=== PATIENT | male | born 1950 | race Caucasian/White ===

== ENCOUNTER 2018-12-04 14:02 | Observation (INO) | payer MEDICARE ==
[~2018-12-04 14:02] MED LIST: CLINDAMYCIN 600 MG/50 ML D5W IVPB IVPB; ETOMIDATE 20 MG INJ
[2018-12-04] MEDS ORDERED: MIDAZOLAM 1 MG/ML 2 ML INJ ×2 (15:27→15:57)
[2018-12-04 15:48] LABS: INR 0.99; PROTIME 13.2 Sec (11.9-14.9)
[2018-12-04] MEDS ORDERED: FENTAnyl 50 MCG/ML VIAL (15:57)
[2018-12-04] MEDS ORDERED: METOCLOPRAMIDE 10 MG INJ IV (16:00)
[2018-12-04] MEDS ORDERED: MEPERIDINE 25 MG INJ IV (16:00)
[2018-12-04] MEDS ORDERED: HYDROmorphONE 1 MG/5 ML IV SYRINGE IV ×2 (16:00→18:17)
[2018-12-04] MEDS ORDERED: ONDANSETRON 4 MG INJ IV ×2 (16:00→18:30)
[2018-12-04] MEDS ORDERED: FENTAnyl 50 MCG/ML VIAL IV (16:00)
[2018-12-04] MEDS ORDERED: KETOROLAC 30 MG INJ IV (16:00)
[2018-12-04] MEDS ORDERED: GENTAMICIN 80 MG INJ (17:03)
[2018-12-04] MEDS ORDERED: CEFAZOLIN 1 GM INJ (17:13)
[2018-12-04] MEDS ORDERED: PROPOFOL 20 ML (17:13)
[2018-12-04] MEDS ORDERED: ONDANSETRON 4 MG INJ (17:13)
[2018-12-04] MEDS ORDERED: LIDOCAINE 2% (SDV) 5 ML INJ (17:13)
[2018-12-04] MEDS ORDERED: ROCURONIUM 50 MG INJ (17:13)
[2018-12-04] MEDS: HYDROmorphONE 1 MG/5 ML IV SYRINGE IV (18:21)
[2018-12-04] MEDS ORDERED: DOCUSATE SODIUM 100 MG CAP PO (18:30)
[2018-12-04] MEDS ORDERED: BISACODYL 10 MG SUPP PR (18:30)
[2018-12-04] MEDS ORDERED: NACL 0.9% 3 ML SYG IV (18:30)
[2018-12-04] MEDS ORDERED: BISACODYL (EC) 5 MG TAB PO (18:30)
[2018-12-04] MEDS ORDERED: ALBUTEROL/IPRATROPIUM (NEB) 3 ML AMP HHN (18:30)
[2018-12-04] MEDS ORDERED: MAGNESIUM HYDROXIDE 30ML CUP PO (18:30)
[2018-12-04] MEDS ORDERED: ZOLPIDEM 5 MG TAB PO (18:30)
[2018-12-04] MEDS ORDERED: GLUCOSE GEL 15 GRAM TUBE BUCCAL (19:00)
[2018-12-04] MEDS ORDERED: GLUCOSE GEL 15 GRAM TUBE PO ×2 (19:00)
[2018-12-04] MEDS ORDERED: DEXTROSE 50% 50 ML SYRINGE IV ×2 (19:00)
[2018-12-04] MEDS ORDERED: GLUCAGON 1 MG INJ IM (19:00)
[2018-12-04] MEDS: DIPHENHYDRAMINE 50 MG INJ IV (19:40)
[2018-12-04] MEDS: SOD CHLORIDE 0.9% 1,000 ML IV (19:44)
[2018-12-04] MEDS: morphine 2 MG INJ IV (19:50)
[2018-12-04] MEDS: INSULIN ASPART [NOVOLOG] 3 ML PEN SC (21:00)
[2018-12-04] MEDS: FAMOTIDINE 20 MG INJ IV (21:01)
[2018-12-04] MEDS: CEFAZOLIN 1 GM/50 ML (PMX) 50 ML IVPB (21:10)
[2018-12-04] MEDS: HYDROCODONE/APAP (5/325) TAB PO (21:18)
[2018-12-05] MEDS: ACCU-CHEK XX (02:00)
[2018-12-05 05:19] LABS: ADD MAN DIFF? NO
[2018-12-05] MEDS: CEFAZOLIN 1 GM/50 ML (PMX) 50 ML IVPB (05:25)
[2018-12-05 05:27] LABS: ABNORMAL IP MESSAGE 1; BASOPHILS % 0.3 % (0.0-2.0); HEMATOCRIT 44.8 % (42.0-52.0); HEMOGLOBIN 14.3 g/dl (14.0-18.0); LYMPHOCYTES # 0.5 10^3/ul (0.8-2.9); LYMPHOCYTES % 3.1 % (15.0-51.0); MEAN CORPUSCULAR HEMOGLOBIN 27.8 pg (29.0-33.0); MEAN CORPUSCULAR HGB CONC 31.9 g/dl (32.0-37.0); MEAN PLATELET VOLUME 10.2 fl (7.4-10.4); MONOCYTES % 6.8 % (0.0-11.0); NEUTROPHIL # 13.2 10^3/ul (1.6-7.5); PLATELET COUNT 244 10^3/UL (140-415); POSITIVE DIFF @See below; RED BLOOD COUNT 5.15 10^6/ul (4.70-6.10); RED CELL DISTRIBUTION WIDTH 14.6 % (11.5-14.5)
[2018-12-05 05:27] LABS: WHITE BLOOD COUNT 14.8 10^3/ul (4.8-10.8)
[2018-12-05 05:40] LABS: HEMOGLOBIN A1C 9.7 % (0-5.9)
[2018-12-05 06:04] LABS: ALANINE AMINOTRANSFERASE 258 IU/L (13-69); ALBUMIN 3.7 g/dl (3.3-4.9); ALBUMIN/GLOBULIN RATIO 0.94; ALKALINE PHOSPHATASE 172 IU/L (42-121); ANION GAP 9 (5-13); ASPARTATE AMINO TRANSFERASE 357 IU/L (15-46); BILIRUBIN,INDIRECT 1.3 mg/dl (0-1.1); BILIRUBIN,TOTAL 2.8 mg/dl (0.2-1.3); BLOOD UREA NITROGEN 30 mg/dl (7-20); CALCIUM 8.9 mg/dl (8.4-10.2); CARBON DIOXIDE 28 mmol/L (21-31); CHLORIDE 101 mmol/L (97-110); CREATININE 1.65 mg/dl (0.61-1.24); Estimated GFR 42 mL/min (>60); GLUCOSE 248 mg/dl (70-220); MAGNESIUM 1.9 mg/dl (1.7-2.5); POTASSIUM 4.4 mmol/L (3.5-5.1); SODIUM 138 mmol/L (135-144); TOTAL PROTEIN 7.6 g/dl (6.1-8.1)
[2018-12-05] MEDS: ACETAMINOPHEN 325 MG TAB PO (06:34)
[2018-12-05] MEDS: FAMOTIDINE 20 MG INJ IV ×2 (08:17→20:44)
[2018-12-05] MEDS: INSULIN ASPART [NOVOLOG] 3 ML PEN SC ×4 (08:19→20:50)
[2018-12-05] MEDS: HYDROCODONE/APAP (5/325) TAB PO (09:58)
[2018-12-05] MEDS: PIPER-TAZO 2.25 GM (PMX) 50 ML IVPB ×4 (10:38→23:55)
[2018-12-05] MEDS: SOD CHLORIDE 0.9% 1,000 ML IV (11:19)
[2018-12-05] MEDS: NAPROXEN 250 MG TAB PO (13:05)
[2018-12-05] MEDS: INSULIN GLARGINE [LANTus] (100 UNITS/ML) SYG SC (20:48)
[2018-12-05] MEDS: traMADol 50 MG TAB PO (22:45)
[2018-12-06] MEDS: NAPROXEN 250 MG TAB PO (01:14)
[2018-12-06] MEDS: ACCU-CHEK XX (02:10)
[2018-12-06 05:28] LABS: ADD MAN DIFF? NO
[2018-12-06 05:33] LABS: BASOPHILS % 0.3 % (0.0-2.0); EOSINOPHILS # 0.1 10^3/ul (0.0-0.5); EOSINOPHILS % 0.7 % (0.0-7.0); HEMATOCRIT 41.2 % (42.0-52.0); LYMPHOCYTES # 0.6 10^3/ul (0.8-2.9); LYMPHOCYTES % 9.1 % (15.0-51.0); MEAN CORPUSCULAR HEMOGLOBIN 27.4 pg (29.0-33.0); MEAN CORPUSCULAR HGB CONC 31.6 g/dl (32.0-37.0); MEAN CORPUSCULAR VOLUME 86.9 fl (82.0-101.0); MEAN PLATELET VOLUME 10.1 fl (7.4-10.4); MONOCYTE # 0.8 10^3/ul (0.3-0.9); MONOCYTES % 11.5 % (0.0-11.0); NEUTROPHIL # 5.3 10^3/ul (1.6-7.5); PLATELET COUNT 197 10^3/UL (140-415); RED BLOOD COUNT 4.74 10^6/ul (4.70-6.10); RED CELL DISTRIBUTION WIDTH 14.6 % (11.5-14.5)
[2018-12-06 05:33] LABS: WHITE BLOOD COUNT 6.8 10^3/ul (4.8-10.8)
[2018-12-06] MEDS: PIPER-TAZO 2.25 GM (PMX) 50 ML IVPB ×2 (05:37→13:02)
[2018-12-06] MEDS: SOD CHLORIDE 0.9% 1,000 ML IV (05:37)
[2018-12-06 06:11] LABS: ALANINE AMINOTRANSFERASE 122 IU/L (13-69); ALBUMIN 3.6 g/dl (3.3-4.9); ALBUMIN/GLOBULIN RATIO 0.92; ALKALINE PHOSPHATASE 172 IU/L (42-121); ANION GAP 9 (5-13); ASPARTATE AMINO TRANSFERASE 107 IU/L (15-46); BILIRUBIN,INDIRECT 1.2 mg/dl (0-1.1); BILIRUBIN,TOTAL 3.6 mg/dl (0.2-1.3); BLOOD UREA NITROGEN 26 mg/dl (7-20); CALCIUM 8.5 mg/dl (8.4-10.2); CARBON DIOXIDE 25 mmol/L (21-31); CHLORIDE 103 mmol/L (97-110); CREATININE 1.58 mg/dl (0.61-1.24); Estimated GFR 44 mL/min (>60); GLUCOSE 206 mg/dl (70-220); LIPASE 73 U/L (23-300); POTASSIUM 3.8 mmol/L (3.5-5.1); SODIUM 137 mmol/L (135-144); TOTAL PROTEIN 7.5 g/dl (6.1-8.1)
[2018-12-06 06:16] LABS: MAGNESIUM 2.2 mg/dl (1.7-2.5)
[2018-12-06] MEDS: FAMOTIDINE 20 MG INJ IV (08:25)
[2018-12-06] MEDS: INSULIN ASPART [NOVOLOG] 3 ML PEN SC ×2 (08:27→12:47)
== END 2018-12-06 16:25 | disposition home or self-care (01) ==
LOC: GIL 14:02 → MS1 19:04 → GIL 18:25 → MS1 18:25
DX: K80.50 Calculus of bile duct without cholangitis or cholecystitis without obstruction (principal); I10 Essential (primary) hypertension; E11.42 Type 2 diabetes mellitus with diabetic polyneuropathy; E11.65 Type 2 diabetes mellitus with hyperglycemia; I12.9 Hypertensive chronic kidney disease with stage 1 through stage 4 chronic kidney disease, or unspecified chronic kidney disease; E11.22 Type 2 diabetes mellitus with diabetic chronic kidney disease; N18.3 Chronic kidney disease, stage 3 (moderate)
CPT/HCPCS: 43265; 74330; 80053; 82962; 83036; 83690; 83735; 85025; 85610